=== PATIENT | female | born 1975 | race Two or more races ===

== ENCOUNTER 2024-03-21 18:47 | Emergency (ER) | payer SELFPAY ==
[~2024-03-21] VITALS: Ht 165.1 cm; Wt 80.0 kg
[2024-03-21] MEDS: EPINEPHrine HCL 250 ML IV SCH (19:15)
[2024-03-21] MEDS: EPINEPHrine HCL 250 ML IV ONE (19:30)
[2024-03-21] MEDS: NOREPINEPHRINE 8 MG/250ML KIT 250 ML IV ONE (19:30)
[2024-03-21] MEDS: CALCIUM GLUC 1,000mg/50ml-NS 50 ML IV ONE ×2 (19:30)
[2024-03-21 19:35] LABS: Hematocrit 36.9 % (36.0-46.0); Hemoglobin 10.8 g/dL (12.2-16.2); Mean Corpuscular Hemoglobin 27.2 pg (28.0-32.0); Mean Corpuscular Hgb Conc. 29.4 g/dL (32.0-36.0); Mean Corpuscular Volume 92.6 fL (80.0-100.0); Platelet Count (auto) 135 10^3/uL (140-450); Red Blood Cells 3.99 10^6/uL (4.0-5.20); Red Cell Distribution Width 18.3 % (11.8-14.3)
[2024-03-21 19:38] LABS: Basophils % (manual) 0 (0.0-2.0); Blast Cells 0; Metamyelocytes % 0; Myelocytes % 0; Promyelocytes % 0; Reactive Lymphocytes 0
[2024-03-21] MEDS: EPINEPHrine HCL 1 MG/10 ML SYRG ONE ×4 (19:39→20:26)
[2024-03-21 19:47] LABS: Alanine Aminotransferase 685 U/L (7-40); Albumin 2.9 g/dL (3.2-4.8); Alkaline Phosphatase 98 U/L (46-116); Anion Gap 30.00001 (5-15); Aspartate Aminotransferase 782 U/L (13-40); BUN/Creatinine Ratio 6.3 (10.0-20.0); Blood Urea Nitrogen 9 mg/dL (9-23); Calcium 12.9 mg/dL (8.7-10.4); Chloride 112 mmol/L (98-107); Glucose 276 mg/dL (74-106); Potassium 5.4 mmol/L (3.5-5.1); Sodium 152 mmol/L (136-145)
[2024-03-21 19:48] LABS: Bilirubin, Total 0.2 mg/dL (0.2-1.0); Total Protein 4.9 g/dL (5.7-8.2)
[2024-03-21 19:52] LABS: Carbon Dioxide < 10 mmol/L (20-31)
[2024-03-21] MEDS: SODIUM BICARB 8.4% 50Meq/50ml SYR Vial IV ONE ×2 (20:10→20:14)
[2024-03-21] MEDS: SODIUM CHLORIDE 0.9% 1,000 ML IV ONE ×3 (20:23→21:05)
[2024-03-21 20:33] LABS: Anisocytosis Slight; Band Neutrophils % (manual) 2; Eosinophils % (manual) 3 (0-7); Lymphocytes % (manual) 65 (10.0-50.0); Monocytes % (manual) 6 (0-12); Platelet Estimate Decreased
[2024-03-21] MEDS: PHENYLEPHRINE IV 250 ML IV ONE (20:39)
[2024-03-21] MEDS: PHENYLEPHRINE IV 250 ML IV SCH (20:40)
[2024-03-21 21:10] VITALS: PULSE 81; RESP 16; O2SAT 86
[2024-03-21 21:15] VITALS: RESP 12
[2024-03-21] MEDS: LACTATED RINGER'S 1,000 ML IV ONE (21:20)
[2024-03-21 21:25] VITALS: BP 84/59; PULSE 77; O2SAT 77
[2024-03-22] MEDS: TRANEXAMIC ACID 1,000 MG in SODIUM CHL 0.9% 100 ML IV ONE (00:07)
== END 2024-03-21 23:28 | disposition short-term general hospital (02) ==
LOC: EDAGE 18:47 → ER 18:57 → EDBD 18:57 → ER 23:28
DX: I46.9 Cardiac arrest, cause unspecified (principal); R10.2 Pelvic and perineal pain; R58 Hemorrhage, not elsewhere classified; F17.200 Nicotine dependence, unspecified, uncomplicated; R41.82 Altered mental status, unspecified; I95.9 Hypotension, unspecified; V49.9XXA Car occupant (driver) (passenger) injured in unspecified traffic accident, initial encounter; Y93.89 Activity, other specified; Y92.488 Other paved roadways as the place of occurrence of the external cause; Y99.8 Other external cause status
CPT/HCPCS: 31500; 36415; 36556; 71045; 80053; 84702; 85007; 85027; 86850; 86870; 86900; 86901; 86902; 86905; 92950; 96360; 99291; 99292; J0171; J0613; J2370; J7030; P9016; P9017; 86922